=== PATIENT | male | born 1940 | race Two or more races ===

== ENCOUNTER 2019-10-23 21:16 | Emergency (ER) | payer MEDICAID, OTHER ==
[~2019-10-23] VITALS: Ht 175.3 cm; Wt 64.9 kg
--- NOTE | 2019-10-23 21:37 | NUR ---
PATIENT CAME TO ER BED 11 BIB RA FROM [facility] FOR PSYCHE EVALUATION AFTER BREAKING WINDOW. PATIENT APPEARS CALMS. PATIENT STATES, "HERE'S MY NUMBER", WHILE HANDING A PIECE OF PAPER TO THE NURSE. PATIENT REFUSES TO RESPOND TO ANY QUESTIONS. NO SOB. BREATHING EVENLY AND UNLABORED ON ROOM AIR. WATCHING TELEVISION. SITTER AT BEDSIDE.
[2019-10-23] MEDS ORDERED: LORAZEPAM INJ 2 MG/ML VIAL ONE (22:29)
[2019-10-23] MEDS ORDERED: LORAZEPAM INJ 2 MG/ML VIAL IM ONE (23:00)
[2019-10-23 23:01] LABS: BASOPHILS % (AUTO) 0.2 % (0.0-2.0); CALCIUM, SERUM 9.2 mg/dL (8.5-10.1); CARBON DIOXIDE 29 mmol/L (21-32); CHLORIDE 104 mmol/L (98-107); CREATININE 1.1 mg/dL (0.6-1.3); EOSINOPHILS % (AUTO) 0.6 % (0.0-6.0); GLUCOSE 111 mg/dL (74-106); HEMATOCRIT 44 % (39-51); LYMPHOCYTES # (AUTO) 3.1 /CMM (0.8-4.8); LYMPHOCYTES % (AUTO) 32.7 % (20.0-44.0); MEAN CORPUSCULAR HGB CONC 34 g/dl (31.0-36.0); MEAN CORPUSCULAR VOLUME 96 fL (80-96); MONOCYTES # (AUTO) 0.9 /CMM (0.1-1.30); MONOCYTES % (AUTO) 9.9 % (2.0-12.0); NEUTROPHILS # (AUTO) 5.3 /CMM (1.8-8.9); NEUTROPHILS % (AUTO) 56.6 % (43.0-81.0); PLATELET COUNT (AUTO) 280 /CMM (150-450); POTASSIUM 3.7 mmol/L (3.5-5.1); RED BLOOD CELL COUNT(AUTO) 4.53 MIL/uL (4.5-6.0); SODIUM SERUM 141 mmol/L (136-145); UREA NITROGEN, BLOOD 22 mg/dL (7-18); WHITE BLOOD COUNT (AUTO) 9.5 K/uL (4.3-11.0)
[2019-10-23 23:06] LABS: ALANINE AMINOTRANSFERASE 19 U/L (12-78); ALCOHOL, BLOOD < 3 mg/dL (0-0); ALKALINE PHOSPHATASE 71 U/L (46-116); ASPARTATE AMINOTRANSFERASE 21 U/L (15-37); BILIRUBIN,DIRECT 0.1 mg/dL (0.0-0.2); BILIRUBIN,TOTAL 0.2 mg/dL (0.2-1.0); SALICYLATE 1.4 mg/dL (2.8-20.0); TOTAL PROTEIN, SERUM 8.7 g/dL (6.4-8.2)
[2019-10-23 23:07] LABS: ACETAMINOPHEN 0 ug/ml (10-30)
--- NOTE | 2019-10-24 06:22 | NUR ---
YOANNA BUTCHER at bedside for eval. Does not meet 5150 criteria
--- NOTE | 2019-10-24 06:33 | NUR ---
Felix called for S transport. ETA [id number].
--- NOTE | 2019-10-24 07:15 | NUR ---
ENDORSEMENT RECEIVED FROM [facility] FOR [facility]. PATIENT IN BED ASLEEP, EASILY AROUSABLE BY VOICE. HOOKED TO MONITOR. KEPT WARM, SAFE AND COMFORTABLE.
--- NOTE | 2019-10-24 07:58 | NUR ---
CORONAVIRUS SWAB DONE AND SENT TO LAB
--- NOTE | 2019-10-24 08:24 | NUR ---
Patient picked up by [facility] in stable condition. Patient will be brought back to [facility].
[2019-10-24 08:25] VITALS: BP 148/87
== END 2019-10-24 08:31 ==
LOC: ER 21:28
DX: R45.1 Restlessness and agitation (principal); F03.91 Unspecified dementia, unspecified severity, with behavioral disturbance; N40.0 Benign prostatic hyperplasia without lower urinary tract symptoms; R73.03 Prediabetes; Z82.49 Family history of ischemic heart disease and other diseases of the circulatory system; Z11.59 Encounter for screening for other viral diseases
CPT/HCPCS: 36415; 80048; 80076; 80307; 80329; 85025; 96372; 99285; C9803; G0480; J2060; U0003